=== PATIENT | female | born 1930 | race Asian ===

== ENCOUNTER 2017-06-22 19:13 | Emergency (ER) | payer MEDICARE, OTHER ==
[~2017-06-22] VITALS: Ht 152.4 cm; Wt 47.6 kg
[2017-06-22] MEDS ORDERED: MULTI-DELYN237 ML GT (19:20)
[2017-06-22] MEDS ORDERED: SENNA8.6 M2 GT (19:20)
[2017-06-22] MEDS ORDERED: CELEBREX200 MG GT (19:20)
[2017-06-22] MEDS ORDERED: CRESTOR10 M1 ORAL (19:20)
[2017-06-22] MEDS ORDERED: PEPCID20 MG GT (19:20)
[2017-06-22] MEDS ORDERED: ASPIRIN81 MG GT (19:30)
[2017-06-22] MEDS ORDERED: PROSTAT GT (19:30)
[2017-06-22] MEDS ORDERED: ARICEPT10 MG GT (19:30)
--- NOTE | 2017-06-22 21:49 | Emergency Room Report ---
History of Present Illness General Chief Complaint: Malfunctioning Gastric Tube Source: Medical Record Present Illness HPI 86-year-old female presents ED for G-tube placement. Patient comes from convalescent home. Pulled out her G-tube this morning. Upon arrival patient showing no signs of distress. No abdominal pain. No nausea or vomiting. No other aggravating or relieving factors. No other associated symptoms Allergies: Coded Allergies: No Known Allergies (Unverified , 06/22/17) Patient History Past Medical History: GERD Past Surgical History: other - gtube Pertinent Family History: none Social History: Denies: smoking, alcohol use, drug use Now: No Immunizations: UTD Reviewed Nursing Documentation: PMH: Agreed, PSxH: Agreed Nursing Documentation-PMH Hx Gastrointestinal Problems: Yes - gastrostomy,GERD Review of Systems All Other Systems: negative except mentioned in HPI Physical Exam Vital Signs Date Time Temp Pulse Resp B/P (MAP) Pulse Ox O2 Delivery O2 Flow Rate FiO2 06/22/17 19:04 97.4 67 16 97/47 97 Room Air 97.3 Sp02 EP Interpretation: reviewed, normal General Appearance: no apparent distress, non-toxic Head: normocephalic Eyes: bilateral eye normal inspection, bilateral eye PERRL ENT: normal ENT inspection Neck: normal inspection Respiratory: chest non-tender, lungs clear, normal breath sounds, speaking full sentences Cardiovascular #1: regular rate, rhythm, no edema Gastrointestinal: normal bowel sounds, non tender, soft, non-distended, no guarding, no rebound, other - Gtube site C/D/I. patent Rectal: deferred Genitourinary: no CVA tenderness Musculoskeletal: normal inspection Neurologic: alert, responsive Psychiatric: normal inspection Skin: normal inspection Lymphatic: normal inspection Procedures Additional Procedure Procedure Narrative G-tube placement Patient placed on stretcher. Old G-tube is removed by deflating the balloon using syringe. G-tube site is inspected with no contraindications to G-tube placement. G-tube slowly inserted until resistance is met; G-tube balloon is slowly filled with 20 mL of normal saline and slowly retracted back until resistance is met. G-tube placement is confirmed with KUB study using Gastrografin Medical Decision Making Diagnostic Impression: Primary Impression: Malfunction of gastrostomy tube ER Course Hospital Course 86-year-old female presents to ED for G-tube placement. Pulled out G-tube at alf Clinical course Patient placed on stretcher. After initial history and physical I replaced G- tube and inflate the balloon. G-tube placement confirmed with KUB study. Patient remained stable without any signs of distress. care home called and patient subsequently discharged back to facility. Diagnosis - malfunction of G tube stable and discharged back to facility. Followup with PMD. Return to ED if symptoms recur or worsen Other X-Ray Diagnostic Results Other X-Ray Diagnostic Results : X-Ray ordered: KUB # of Views/Limited Vs Complete: 1 View Indication: Other - Gtube placement EP Interpretation: Yes Interpretation: nonspecific bowel gas, no sbo, other - Gtube in palce Impression: Other - Gtube in place Electronically Signed by: Electronically signed by Vicente Reyes MD Last Vital Signs Date Time Temp Pulse Resp B/P (MAP) Pulse Ox O2 Delivery O2 Flow Rate FiO2 06/22/17 19:04 97.4 67 16 97/47 97 Room Air 97.3 Status: improved Disposition: [facility] Condition: Stable Referrals: NON PHYSICIAN (PCP) Patient Instructions: Gastrostomy Tube Home Guide, Adult VICENTE REYES M.D. Jun 22, 2017 21:49
[2017-06-22 23:32] VITALS: BP 97/47
--- NOTE | 2017-06-23 10:51 | Diagnostic Imaging Report ---
Indication: Post gastrostomy replacement Technique: Supine view of the abdomen after injection of water-soluble contrast into gastrostomy Comparison: Findings: Contrast opacifies the stomach. No contrast extravasation is demonstrated. The bowel gas pattern is unremarkable. 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
== END 2017-06-22 23:33 ==
LOC: EDBD 19:13 → EMR 19:45
DX: K94.23 Gastrostomy malfunction (principal); K21.9 Gastro-esophageal reflux disease without esophagitis
CPT/HCPCS: 43760; 74018; 99284